=== PATIENT | female | born 1935 | race Caucasian/White ===

== ENCOUNTER 2017-07-24 13:34 | Inpatient (IN) | payer OTHER ==
[~2017-07-24] VITALS: Ht 160 cm; Wt 49.8 kg
[2017-07-24] MEDS ORDERED: ONDANSETRON 2MG/ML, 2ML ONE (14:22)
[2017-07-24] MEDS ORDERED: FAMOTIDINE 20 MG/2 ML ONE (14:22)
[2017-07-24] MEDS ORDERED: FAMOTIDINE 20 MG/2 ML IVP ONE (14:30)
[2017-07-24] MEDS ORDERED: ONDANSETRON 2MG/ML, 2ML IVPush ONE (14:30)
[2017-07-24] MEDS ORDERED: SODIUM CHLORIDE FLUSH 10ML SYR IVF ONE (14:30)
[2017-07-24] MEDS ORDERED: SODIUM CHLORIDE 0.9% 1,000ML IVBOLUS ONE (14:30)
[2017-07-24 14:32] LABS: HEMATOCRIT 43.8 % (34.6-47.8); HEMOGLOBIN 14.7 g/dL (11.7-16.4); WHITE BLOOD COUNT 17.3 x10^3/uL (3.4-10)
[2017-07-24 14:43] LABS: BLOOD UREA NITROGEN 31 mg/dL (7-18)
[2017-07-24 14:46] LABS: ASPARTATE AMINO TRANSFERASE 21 U/L (15-37)
[2017-07-24] MEDS ORDERED: METRONIDAZOLE PMX 500MG/100ML 100 ML IVPB ONE (16:00)
[2017-07-24] MEDS ORDERED: CIPROFLOXACIN/PMX 400MG/200ML 100 ML IVPB ONE (16:00)
[2017-07-24] MEDS ORDERED: CIPROFLOXACIN/PMX 400MG/200ML 200 ML ONE (16:08)
[2017-07-24] MEDS ORDERED: METRONIDAZOLE PMX 500MG/100ML 100 ML ONE (16:08)
[2017-07-24] MEDS ORDERED: OMNIPAQUE 350 MG/ML, 100ML BOTTLE ONE (16:23)
[2017-07-24] MEDS ORDERED: ALPR1TAB6 PO (16:33)
[2017-07-24] MEDS ORDERED: LOVA40TA2 PO (16:33)
[2017-07-24] MEDS ORDERED: RANI150T4 PO (16:33)
[2017-07-24] MEDS ORDERED: CLOP75TA52 PO (16:33)
[2017-07-24] MEDS ORDERED: TIOT18CA INH (16:33)
[2017-07-24] MEDS ORDERED: LISI5TAB7 PO (16:33)
[2017-07-24] MEDS ORDERED: ONDANSETRON 2MG/ML, 2ML IVPush PRN ×2 (17:30→18:30)
[2017-07-24] MEDS ORDERED: SODIUM CHLORIDE FLUSH 10ML SYR IVF PRN (17:30)
[2017-07-24] MEDS ORDERED: SODIUM CHLORIDE 0.9% 1,000 ML IV ONE (17:30)
[2017-07-24] MEDS: METRONIDAZOLE PMX 500MG/100ML 100 ML IV SCH (18:19)
[2017-07-24] MEDS: CIPROFLOXACIN/PMX 400MG/200ML 200 ML IV SCH (18:19)
[2017-07-24] MEDS ORDERED: NICOTINE 14MG/24 HR PATCH.TD24 ONE (18:30)
[2017-07-24] MEDS ORDERED: ACETAMINOPHEN 325 MG TABLET PO PRN (18:30)
[2017-07-24] MEDS ORDERED: HEPARIN 5,000 UNITS/ML, 1ML ONE (18:30)
[2017-07-24] MEDS ORDERED: POLYETHYLENE GLYCOL 17 GM PACKET PO PRN (18:30)
[2017-07-24] MEDS ORDERED: OXYcodone IR 5MG TABLET PO PRN (18:30)
[2017-07-24] MEDS ORDERED: ALPRazolam 1MG TABLET PO PRN (18:30)
[2017-07-24] MEDS ORDERED: BISACODYL 10 MG SUPP PR PRN (18:30)
[2017-07-24] MEDS: NICOTINE 14MG/24 HR PATCH.TD24 TD SCH (18:32)
[2017-07-24] MEDS: HEPARIN 5,000 UNITS/ML, 1ML SQ SCH (18:33)
[2017-07-24 18:36] LABS: CARCINOEMBRYONIC ANTIGEN 3.38 ng/mL (0.0-3.00)
[2017-07-24] MEDS: POTASSIUM CHLORIDE 30 MEQ in SODIUM CHLORIDE 0.9% 1,000 ML IV SCH (19:21)
[2017-07-24] MEDS ORDERED: ALBUTEROL SULFATE 2.5 MG/3 ML NPPB PRN (20:30)
[2017-07-24 20:54] VITALS: BP 108/69
[2017-07-24] MEDS: FAMOTIDINE 20 MG TABLET PO SCH (21:48)
[2017-07-24] MEDS: LOVASTATIN 40 MG TABLET PO SCH (21:48)
[2017-07-25] MEDS: METRONIDAZOLE PMX 500MG/100ML 100 ML IV SCH ×3 (02:13→20:16)
[2017-07-25] MEDS: HEPARIN 5,000 UNITS/ML, 1ML SQ SCH ×3 (02:15→20:18)
[2017-07-25] MEDS: IPRATROPIUM 0.5 MG/2.5 ML INHA NPPB SCH ×4 (02:30→20:29)
[2017-07-25 03:28] VITALS: BP 121/82
[2017-07-25 06:00] LABS: HEMATOCRIT 32.8 % (34.6-47.8); HEMOGLOBIN 11.2 g/dL (11.7-16.4); WHITE BLOOD COUNT 10.7 x10^3/uL (3.4-10)
[2017-07-25 06:08] LABS: ASPARTATE AMINO TRANSFERASE 11 U/L (15-37); BLOOD UREA NITROGEN 28 mg/dL (7-18)
[2017-07-25] MEDS: CIPROFLOXACIN/PMX 400MG/200ML 200 ML IV SCH ×2 (06:14→18:19)
[2017-07-25 06:45] VITALS: BP 125/65
[2017-07-25] MEDS ORDERED: TEMPLATE NON-FORMULARY MED. (Tiotropium Bromide** (Spiriva**) 18 MCG) INH SCH (09:00)
[2017-07-25] MEDS: CLOPIDOGREL 75 MG TABLET PO SCH (09:09)
[2017-07-25] MEDS: SENNA/DOCUSATE TABLET PO SCH (09:09)
[2017-07-25] MEDS: LISINOPRIL 20 MG TABLET PO SCH (09:09)
[2017-07-25] MEDS: POTASSIUM CHLORIDE 30 MEQ in SODIUM CHLORIDE 0.9% 1,000 ML IV SCH ×2 (09:10→20:18)
[2017-07-25 13:14] VITALS: BP 110/62
[2017-07-25] MEDS: NICOTINE 14MG/24 HR PATCH.TD24 TD SCH (18:20)
[2017-07-25] MEDS: LOVASTATIN 40 MG TABLET PO SCH (20:23)
[2017-07-25] MEDS: FAMOTIDINE 20 MG TABLET PO SCH (20:23)
[2017-07-25 20:55] VITALS: BP 121/57
[2017-07-26 02:06] VITALS: BP 119/51
[2017-07-26] MEDS: IPRATROPIUM 0.5 MG/2.5 ML INHA NPPB SCH ×3 (02:46→14:30)
[2017-07-26] MEDS: METRONIDAZOLE PMX 500MG/100ML 100 ML IV SCH ×2 (03:49→12:26)
[2017-07-26] MEDS: HEPARIN 5,000 UNITS/ML, 1ML SQ SCH ×2 (03:49→11:30)
[2017-07-26 05:50] LABS: HEMOGLOBIN 10.9 g/dL (11.7-16.4); WHITE BLOOD COUNT 7.7 x10^3/uL (3.4-10)
[2017-07-26 05:51] LABS: BLOOD UREA NITROGEN 22 mg/dL (7-18)
[2017-07-26] MEDS: CIPROFLOXACIN/PMX 400MG/200ML 200 ML IV SCH (06:16)
[2017-07-26 06:53] VITALS: BP 130/61
[2017-07-26] MEDS: SENNA/DOCUSATE TABLET PO SCH (09:01)
[2017-07-26] MEDS: LISINOPRIL 20 MG TABLET PO SCH (09:01)
[2017-07-26] MEDS: CLOPIDOGREL 75 MG TABLET PO SCH (09:01)
[2017-07-26] MEDS: POTASSIUM CHLORIDE 30 MEQ in SODIUM CHLORIDE 0.9% 1,000 ML IV SCH (12:00)
[2017-07-26 13:14] VITALS: BP 131/71
[2017-07-26] MEDS ORDERED: METR500T PO (16:42)
[2017-07-26] MEDS ORDERED: CIPR500T87 PO (16:42)
== END 2017-07-26 18:17 | disposition home or self-care (01) | DRG 391 ==
LOC: ED 16:32 → EDIP 17:30 → 4NOR 20:43
PROVIDERS: ADMIT Internal Medicine; ATTEND Internal Medicine
DX: A09 Infectious gastroenteritis and colitis, unspecified (principal); N17.0 Acute kidney failure with tubular necrosis; I69.351 Hemiplegia and hemiparesis following cerebral infarction affecting right dominant side; Z93.1 Gastrostomy status; E83.52 Hypercalcemia; R13.10 Dysphagia, unspecified; Z68.1 Body mass index [BMI] 19.9 or less, adult; J44.9 Chronic obstructive pulmonary disease, unspecified; I69.322 Dysarthria following cerebral infarction; E66.9 Obesity, unspecified; N32.9 Bladder disorder, unspecified; E78.5 Hyperlipidemia, unspecified; K63.9 Disease of intestine, unspecified; E87.6 Hypokalemia; I11.9 Hypertensive heart disease without heart failure; R97.0 Elevated carcinoembryonic antigen [CEA]; K21.9 Gastro-esophageal reflux disease without esophagitis; R47.02 Dysphasia; F17.210 Nicotine dependence, cigarettes, uncomplicated; K76.0 Fatty (change of) liver, not elsewhere classified; Z66 Do not resuscitate; Z88.0 Allergy status to penicillin; Z78.0 Asymptomatic menopausal state; Z82.0 Family history of epilepsy and other diseases of the nervous system; Z83.3 Family history of diabetes mellitus; Z85.038 Personal history of other malignant neoplasm of large intestine; Z90.710 Acquired absence of both cervix and uterus
CPT/HCPCS: 36415; 74177; 80048; 80053; 81003; 82378; 83690; 83735; 83970; 85025; 94640; 96361; 96365; 96367; 96375; J0744; J1644; J2405; J3480; J7644; Q9967; J7030; S0028